=== PATIENT | male | born 1990 | race Caucasian/White ===

== ENCOUNTER 2016-12-22 18:16 | Emergency (ER) | payer SELFPAY ==
[2016-12-22 19:00] VITALS: BP 127/81
--- NOTE | 2016-12-22 19:32 | PHYS DOC ---
Adult General Chief Complaint Chief Complaint: HAND PROBLEM HPI HPI Patient is a 26 year old male presents to the emergency department stating that he has confirmed had accidentally closed his right hand in a car door. He states that this occurred 3 days ago. He does have bruising noted over the metacarpal areas. He states that he has taken 600 mg of ibuprofen every 8 hours without relief. He states that he still has some swelling. He does state that he 's placed ice packs on the areas with minimal relief of swelling. Patient is able to move his fingers without difficulty. He does have good sensation noted radial pulses 2+. Patient is right-hand dominant. Review of Systems Review of Systems Constitutional: Denies fever or chills [] Eyes: Denies change in visual acuity, redness, or eye pain [] HENT: Denies nasal congestion or sore throat [] Respiratory: Denies cough or shortness of breath [] Cardiovascular: No additional information not addressed in HPI [] GI: Denies abdominal pain, nausea, vomiting, bloody stools or diarrhea [] : Denies dysuria or hematuria [] Musculoskeletal: Denies back pain. Complaint of right hand pain Integument: Denies rash or skin lesions [] Neurologic: Denies headache, focal weakness or sensory changes [] Endocrine: Denies polyuria or polydipsia [] Physical Exam Physical Exam Constitutional: Well developed, well nourished, no acute distress, non-toxic appearance. [] HENT: Normocephalic, atraumatic, bilateral external ears normal, oropharynx moist, no oral exudates, nose normal. [] Eyes: PERRLA, EOMI, conjunctiva normal, no discharge. [] Neck: Normal range of motion, no tenderness, supple, no stridor. [] Cardiovascular:Heart rate regular rhythm Lungs & Thorax: No respiratory distress noted Skin: Warm, dry, no erythema, no rash. [] Back: No tenderness Extremities: Right metacarpal tenderness, no cyanosis, no clubbing, ROM intact, no edema. Patient able to move the fingers without difficulty. Peripheral pulses 2+, Refill brisk less than 2 seconds. Patient with good sensation noted to the fingers. Neurologic: Alert and oriented X 3, normal motor function, normal sensory function, no focal deficits noted. [] Psychologic: Affect normal, judgement normal, mood normal. [] EKG EKG [] Radiology/Procedures Radiology/Procedures [] Course & Med Decision Making Course & Med Decision Making Pertinent Labs and Imaging studies reviewed. (See chart for details) X-rays appear to be negative per Dr Desai. Patient will be placed in an Kayden wrap with recommendations for ice packs on 20 minutes off 20 minutes several times today. Elevation as much as possible. Continue with ibuprofen 600-800 mg every 8 hours with food stop taking few develop upset stomach. They'll be provided with orthopedic name and number to follow-up with within the next week. Signs and symptoms to return back to the emergency department has been provided. Patient agrees with discharge instructions treatment regimens and follow-up recommendations. [] Dragon Disclaimer Dragon Disclaimer This electronic medical record was generated, in whole or in part, using a voice recognition dictation system. Departure Departure Impression: Primary Impression: Contusion of right hand Disposition: HOME, SELF-CARE Condition: STABLE Referrals: UNKNOWN PCP NAME (PCP) BHARAT VARGAS MD Patient Instructions: Hand Contusion, [id number] Additional Instructions: X-rays were negative for any bony abnormalities. Ibuprofen 600-800 mg every 8 hours with food stop taking few develop an upset stomach. Wear the Kayden wrap for the next 5-7 days. Ice packs on 20 minutes off 20 minutes several times a day. Elevation as much as possible. Follow-up with orthopedic within the next week. Return back to emergency prior signs symptoms of become worse. PRECIOUS CHAWLA APRN Dec 22, 2016 19:32
--- NOTE | 2016-12-23 08:32 | RAD ---
Right hand, 3 views, 12/22/2016: History: Hand injury No fracture or dislocation is identified. The soft tissues are unremarkable. IMPRESSION: No acute bony abnormality is detected.
== END 2016-12-22 19:55 | disposition home or self-care (01) ==
LOC: ER 18:16
DX: S60.221A Contusion of right hand, initial encounter (principal); X58.XXXA Exposure to other specified factors, initial encounter; Y93.89 Activity, other specified; Y92.89 Other specified places as the place of occurrence of the external cause; Y99.8 Other external cause status
CPT/HCPCS: 73130; 99284